=== PATIENT | female | born 1945 | race Hispanic/Latino ===

== ENCOUNTER 2021-06-30 12:28 | Inpatient (IN) | payer MEDICARE ==
[2021-06-30] MEDS ORDERED: ONDANSETRON 4MG INJ ONE (12:40)
[2021-06-30 12:54] LABS: BASOPHILS % (AUTO) 0.4 % (0.0-5.0); EOSINOPHILS % (AUTO) 0.3 % (0.0-8.0); HEMATOCRIT 41.3 % (36-48); MEAN CORPUSCULAR HEMOGLOBIN 30.1 pg (27.0-33.0); MEAN CORPUSCULAR VOLUME 94.3 fL (79-99); MONOCYTES % (AUTO) 7.5 % (3.0-13.0); NEUTROPHILS % (AUTO) 73.9 % (40.0-77.0); PLATELET COUNT (AUTO) 213 K/uL (130-400); RED BLOOD CELL COUNT(AUTO) 4.38 MIL/uL (4.00-5.50); RED CELL DISTRIBUTION WIDTH 13.7 % (11.0-15.5); WHITE BLOOD COUNT (AUTO) 9.1 K/uL (4.8-10.8)
[2021-06-30] MEDS ORDERED: PROMETHAZINE HCL 25 MG/ML 1ML AMPULE IM ONE (13:00)
[2021-06-30] MEDS ORDERED: 0.9%NACL 1000ML 1,572 ML IV ONE (13:00)
[2021-06-30] MEDS ORDERED: ONDANSETRON 4MG INJ IVP ONE (13:00)
[2021-06-30 13:04] LABS: CREATININE 1.3 mg/dL (0.5-1.5); POTASSIUM 4.4 mmol/L (3.5-5.1)
[2021-06-30 13:08] LABS: ALBUMIN 2.5 g/dL (3.5-5.0); BILIRUBIN,TOTAL 0.4 mg/dL (0.2-1.0); CRP QUANTITATIVE 89.2 mg/L (0.00-9.0); MAGNESIUM 1.8 mg/dL (1.80-2.40); TOTAL PROTEIN, SERUM 7.3 g/dL (6.0-8.3)
[2021-06-30] MEDS ORDERED: SIMV40TA59 PO (13:13)
[2021-06-30] MEDS ORDERED: MIRA25TA PO (13:13)
[2021-06-30] MEDS ORDERED: OMEP40CA21 PO (13:13)
[2021-06-30] MEDS ORDERED: CETI10TA57 PO (13:13)
[2021-06-30] MEDS ORDERED: FLUO40CA7 PO (13:13)
[2021-06-30] MEDS ORDERED: TRAZ-187 PO (13:13)
[2021-06-30 13:14] LABS: APPEARANCE,URINE Clear (CLEAR); BILIRUBIN,URINE Negative (NEGATIVE); COLOR,URINE Yellow (YELLOW); GLUCOSE, URINE (UA) 250 mg/dL (NEGATIVE); KETONES,URINE Negative (NEGATIVE); LEUKOCYTE ESTERASE ,URINE Moderate (NEGATIVE); NITRATE,URINE Positive (NEGATIVE); OCCULT BLOOD,URINE Negative (NEGATIVE); PH,URINE 5.5 (5.0-8.0); PROTEIN,URINE Negative (NEGATIVE)
[2021-06-30 13:43] LABS: RBC,URINE 0-1 /HPF (0-1)
[2021-06-30 13:44] LABS: BACTERIA,URINE Many /HPF (None Seen)
[2021-06-30 13:45] LABS: SQUAMOUS EPITHELIAL CELL,UR 0-2 /HPF (0-2)
[2021-06-30] MEDS ORDERED: INSULIN HUMULIN R 100 UNIT/ML 3ML IV ONE (14:00)
[2021-06-30] MEDS ORDERED: AZITHROMYCIN 250 MG TABLET PO ONE (14:30)
[2021-06-30] MEDS ORDERED: ONDANSETRON 4MG INJ IVP PRN (19:30)
[2021-06-30] MEDS ORDERED: CEFTRIAXONE 1G VIAL IVP SCH (19:30)
[2021-06-30] MEDS ORDERED: 0.9%NACL 10ML VIAL IV PRN (19:30)
[2021-06-30] MEDS ORDERED: NON-FORMULARY MEDICATION 1 EACH (Simvastatin (Zocor) 40 MG) PO SCH (21:00)
[2021-06-30] MEDS ORDERED: INSULIN HUMULIN R 100 UNIT/ML 3ML SQ SCH (21:00)
[2021-06-30] MEDS ORDERED: 0.9%NACL 50ML 50 ML IV ONE ×2 (21:30→21:40)
[2021-06-30] MEDS: TRAMADOL HCL 50 MG TABLET PO SCH (21:54)
[2021-06-30] MEDS: ZOSYN 3.375GM +NS 50ML IV SCH (21:54)
[2021-06-30] MEDS: SIMVASTATIN 20 MG TABLET PO SCH (21:54)
[2021-06-30] MEDS ORDERED: ACETAMINOPHEN 325 MG TAB ONE (23:05)
[2021-06-30] MEDS: IPRATROPIUM/ALBUTEROL SULFATE 3 ML SOLUTION IH SCH (23:41)
[2021-07-01] VITALS (34 sets, daily range): BP systolic 83–146; BP diastolic 36–109
[2021-07-01] MEDS ORDERED: DEXTROSE 50%-WATER 50 ML DISP.SYRIN IV PRN (00:30)
[2021-07-01] MEDS ORDERED: LIDOCAINE HCL-MPF 1% 2ML VIAL IV PRN (00:30)
[2021-07-01] MEDS ORDERED: POTASSIUM CHLORIDE 10% ELIXIR 20 MEQ/15 ML UDCUP PO PRN (00:30)
[2021-07-01] MEDS ORDERED: GLUCAGON 1MG KIT 1 MG ML IM PRN (00:30)
[2021-07-01] MEDS ORDERED: POTASSIUM CHLORIDE 20MEQ/100ML 100 ML IV PRN (00:30)
[2021-07-01] MEDS ORDERED: KCL 20 MEQ ERTAB PO PRN (00:30)
[2021-07-01] MEDS ORDERED: NOREPINEPHRIN 4MG/NS 250ML 250 ML IV ONE (00:47)
[2021-07-01] MEDS: 0.9%NACL 1000ML 1,000 ML IV SCH ×2 (00:56→09:50)
[2021-07-01] MEDS: TRAMADOL HCL 50 MG TABLET PO SCH ×3 (01:30→12:22)
[2021-07-01] MEDS ORDERED: 0.9%NACL 50ML 50 ML IV ONE (05:55)
[2021-07-01 05:58] LABS: BASOPHILS % (AUTO) 0.3 % (0.0-5.0); EOSINOPHILS % (AUTO) 0.1 % (0.0-8.0); HEMATOCRIT 38.5 % (36-48); LYMPHOCYTES % (AUTO) 13.5 % (21.0-51.0); MEAN CORPUSCULAR HEMOGLOBIN 29.6 pg (27.0-33.0); MEAN CORPUSCULAR HGB CONC 31.9 g/dL (32.0-36.0); MEAN CORPUSCULAR VOLUME 92.5 fL (79-99); MONOCYTES % (AUTO) 9.5 % (3.0-13.0); NEUTROPHILS % (AUTO) 75.8 % (40.0-77.0); PLATELET COUNT (AUTO) 200 K/uL (130-400); RED BLOOD CELL COUNT(AUTO) 4.16 MIL/uL (4.00-5.50); RED CELL DISTRIBUTION WIDTH 13.8 % (11.0-15.5); WHITE BLOOD COUNT (AUTO) 12.3 K/uL (4.8-10.8)
[2021-07-01] MEDS: ZOSYN 3.375GM +NS 50ML IV SCH ×3 (06:00→18:15)
[2021-07-01] MEDS: IPRATROPIUM/ALBUTEROL SULFATE 3 ML SOLUTION IH SCH ×4 (06:13→23:19)
[2021-07-01 06:20] LABS: MAGNESIUM 1.9 mg/dL (1.80-2.40); POTASSIUM 4.4 mmol/L (3.5-5.1); THYROID STIMULATING HORMONE 2.06 uIU/mL (0.36-3.74)
[2021-07-01 06:27] LABS: ABG BASE EXCESS -4.6 mmol/L (-2.0-3.0); ABG HCO3 20.7 mmol/L (21.0-28.0); ABG OXYGEN SATURATION 96.2 % (95.0-99.0); ABG PCO2 39 mmHg (32-45)
[2021-07-01 06:27] LABS: CREATININE 1.4 mg/dL (0.5-1.5)
[2021-07-01] MEDS ORDERED: NON-FORMULARY MEDICATION 1 EACH (Omeprazole 40 MG) PO SCH (07:30)
[2021-07-01] MEDS: INSULIN HUMULIN R 100 UNIT/ML 3ML SQ SCH ×4 (08:07→20:51)
[2021-07-01] MEDS ORDERED: NON-FORMULARY MEDICATION 1 EACH (Cetirizine HCl 10 MG) PO SCH (09:00)
[2021-07-01] MEDS ORDERED: FLUOXETINE HCL 40 MG PO SCH (09:00)
[2021-07-01] MEDS ORDERED: TRAZODONE HCL 100 MG TABLET PO SCH (09:00)
[2021-07-01] MEDS: CETIRIZINE HCL 5 MG TABLET PO SCH (09:50)
[2021-07-01] MEDS: POLYETHYLENE GLYCOL 3350 17 GM POWD.PACK PO SCH (09:50)
[2021-07-01] MEDS: PANTOPRAZOLE 40 MG TAB DR PO SCH (09:50)
[2021-07-01] MEDS: ENOXAPARIN SODIUM 40 MG/0.4 ML SYRINGE SQ SCH (09:50)
[2021-07-01] MEDS: FLUOXETINE HCL 20 MG CAPSULE PO SCH (09:50)
[2021-07-01] MEDS ORDERED: SODIUM CHLORIDE 3% FOR INHALATION 4 ML/AMP VIAL.NEB IH ONE (09:55)
[2021-07-01] MEDS ORDERED: TRAMADOL HCL 50 MG TABLET PO PRN (15:00)
[2021-07-01] MEDS: SIMVASTATIN 20 MG TABLET PO SCH (20:50)
[2021-07-01] MEDS: TRAZODONE HCL 100 MG TABLET PO SCH (20:51)
[2021-07-01] MEDS: INSULIN GLARGINE 100 UNITS/ML 10 ML VIAL SQ SCH (20:52)
[2021-07-02] VITALS (19 sets, daily range): BP systolic 91–135; BP diastolic 43–90
[2021-07-02] MEDS: ZOSYN 3.375GM +NS 50ML IV SCH ×3 (03:32→19:48)
[2021-07-02 03:57] LABS: BASOPHILS % (AUTO) 0.3 % (0.0-5.0); HEMATOCRIT 35.5 % (36-48); LYMPHOCYTES % (AUTO) 17.4 % (21.0-51.0); MEAN CORPUSCULAR HEMOGLOBIN 30.6 pg (27.0-33.0); MEAN CORPUSCULAR HGB CONC 32.1 g/dL (32.0-36.0); MEAN CORPUSCULAR VOLUME 95.2 fL (79-99); NEUTROPHILS % (AUTO) 70.8 % (40.0-77.0); PLATELET COUNT (AUTO) 190 K/uL (130-400); RED BLOOD CELL COUNT(AUTO) 3.73 MIL/uL (4.00-5.50); RED CELL DISTRIBUTION WIDTH 13.9 % (11.0-15.5); WHITE BLOOD COUNT (AUTO) 9.4 K/uL (4.8-10.8)
[2021-07-02 04:11] LABS: ALBUMIN 1.9 g/dL (3.5-5.0); BILIRUBIN,TOTAL 0.5 mg/dL (0.2-1.0); CREATININE 1.2 mg/dL (0.5-1.5); POTASSIUM 4.3 mmol/L (3.5-5.1); TOTAL PROTEIN, SERUM 6.6 g/dL (6.0-8.3)
[2021-07-02 04:15] LABS: HEMOGLOBIN A1C 8.1 % (4.0-6.0)
[2021-07-02] MEDS: INSULIN HUMULIN R 100 UNIT/ML 3ML SQ SCH ×4 (06:06→20:14)
[2021-07-02] MEDS: INSULIN GLARGINE 100 UNITS/ML 10 ML VIAL SQ SCH ×2 (06:24→20:13)
[2021-07-02] MEDS: IPRATROPIUM/ALBUTEROL SULFATE 3 ML SOLUTION IH SCH ×4 (06:31→23:43)
[2021-07-02] MEDS: CETIRIZINE HCL 5 MG TABLET PO SCH (07:55)
[2021-07-02] MEDS: FLUOXETINE HCL 20 MG CAPSULE PO SCH (07:56)
[2021-07-02] MEDS: PANTOPRAZOLE 40 MG TAB DR PO SCH (07:56)
[2021-07-02] MEDS: POLYETHYLENE GLYCOL 3350 17 GM POWD.PACK PO SCH (07:56)
[2021-07-02] MEDS: ENOXAPARIN SODIUM 40 MG/0.4 ML SYRINGE SQ SCH (07:56)
[2021-07-02] MEDS: SIMVASTATIN 20 MG TABLET PO SCH (20:11)
[2021-07-02] MEDS: TRAZODONE HCL 100 MG TABLET PO SCH (20:12)
[2021-07-03] VITALS (7 sets, daily range): BP systolic 97–132; BP diastolic 39–73
[2021-07-03] MEDS ORDERED: 0.9%NACL 50ML 50 ML IV ONE (03:43)
[2021-07-03] MEDS: ZOSYN 3.375GM +NS 50ML IV SCH ×3 (03:48→20:58)
[2021-07-03] MEDS: IPRATROPIUM/ALBUTEROL SULFATE 3 ML SOLUTION IH SCH ×4 (07:02→23:40)
[2021-07-03] MEDS: POLYETHYLENE GLYCOL 3350 17 GM POWD.PACK PO SCH (07:44)
[2021-07-03] MEDS: FLUOXETINE HCL 20 MG CAPSULE PO SCH (08:04)
[2021-07-03] MEDS: CETIRIZINE HCL 5 MG TABLET PO SCH (08:04)
[2021-07-03] MEDS: ENOXAPARIN SODIUM 40 MG/0.4 ML SYRINGE SQ SCH (08:04)
[2021-07-03] MEDS: PANTOPRAZOLE 40 MG TAB DR PO SCH (08:04)
[2021-07-03] MEDS: INSULIN GLARGINE 100 UNITS/ML 10 ML VIAL SQ SCH ×2 (08:05→21:04)
[2021-07-03] MEDS: INSULIN HUMULIN R 100 UNIT/ML 3ML SQ SCH ×4 (08:07→21:05)
[2021-07-03 12:19] LABS: PROTHROMBIN TIME 10.9 SEC (9.6-11.6)
[2021-07-03] MEDS: SIMVASTATIN 20 MG TABLET PO SCH (20:58)
[2021-07-03] MEDS: TRAZODONE HCL 100 MG TABLET PO SCH (20:58)
[2021-07-04 03:08] VITALS: BP 140/49
[2021-07-04] MEDS ORDERED: 0.9%NACL 50ML 50 ML IV ONE (03:11)
[2021-07-04] MEDS: ZOSYN 3.375GM +NS 50ML IV SCH ×2 (03:15→11:57)
[2021-07-04] MEDS ORDERED: SODIUM CHLORIDE 3% FOR INHALATION 4 ML/AMP VIAL.NEB IH ONE (06:29)
[2021-07-04 07:00] VITALS: BP_SYST 118; BP_SYST 136; BP_DIAS 47; BP_DIAS 64
[2021-07-04] MEDS: IPRATROPIUM/ALBUTEROL SULFATE 3 ML SOLUTION IH SCH ×2 (07:10→11:40)
[2021-07-04] MEDS: INSULIN HUMULIN R 100 UNIT/ML 3ML SQ SCH ×2 (07:30→12:25)
[2021-07-04] MEDS: INSULIN GLARGINE 100 UNITS/ML 10 ML VIAL SQ SCH (08:40)
[2021-07-04] MEDS: ENOXAPARIN SODIUM 40 MG/0.4 ML SYRINGE SQ SCH (08:49)
[2021-07-04] MEDS: PANTOPRAZOLE 40 MG TAB DR PO SCH (08:49)
[2021-07-04] MEDS: CETIRIZINE HCL 5 MG TABLET PO SCH (08:50)
[2021-07-04] MEDS: FLUOXETINE HCL 20 MG CAPSULE PO SCH (08:50)
[2021-07-04] MEDS: POLYETHYLENE GLYCOL 3350 17 GM POWD.PACK PO SCH (09:00)
[2021-07-04 11:00] VITALS: BP 118/47
[2021-07-04 19:00] VITALS: BP 160/74
[2021-07-04 19:15] VITALS: BP 170/65
== END 2021-07-04 13:48 | DRG 871 ==
LOC: EDH 12:28 → EDHIP 14:36 → UNDOADMOB 14:36 → OBSVTOIN 19:11 → EDHIP 19:11 → 3AH 07-01 00:24 → EDHIP 07-01 02:10 → 2BH 07-01 09:14 → 2DH 07-02 14:47
PROVIDERS: ADMIT Internal Medicine Critical Care Medicine; ATTEND Internal Medicine Critical Care Medicine
PROC: 02HV33Z Insertion of Infusion Device into Superior Vena Cava, Percutaneous Approach (ICD-10-PCS; principal; 2021-07-03)
DX: A41.51 Sepsis due to Escherichia coli [E. coli] (principal); J18.9 Pneumonia, unspecified organism; R65.21 Severe sepsis with septic shock; N30.00 Acute cystitis without hematuria; Z16.12 Extended spectrum beta lactamase (ESBL) resistance; E66.01 Morbid (severe) obesity due to excess calories; F03.90 Unspecified dementia, unspecified severity, without behavioral disturbance, psychotic disturbance, mood disturbance, and anxiety; Z66 Do not resuscitate; Z20.822 Contact with and (suspected) exposure to COVID-19; E78.00 Pure hypercholesterolemia, unspecified; I10 Essential (primary) hypertension; E78.5 Hyperlipidemia, unspecified; F17.200 Nicotine dependence, unspecified, uncomplicated; G47.33 Obstructive sleep apnea (adult) (pediatric); K21.9 Gastro-esophageal reflux disease without esophagitis; F32.A Depression, unspecified; E11.36 Type 2 diabetes mellitus with diabetic cataract; H26.9 Unspecified cataract; Z74.01 Bed confinement status; Z79.899 Other long term (current) drug therapy; Z87.440 Personal history of urinary (tract) infections
CPT/HCPCS: 36415; 36600; 71045; 76770; 80048; 80053; 80061; 81001; 82550; 82803; 82948; 83036; 83605; 83735; 83874; 84100; 84145; 84443; 84484; 85025; 85610; 86140; 87040; 87077; 87088; 87186; 87635; 87804; 93005; 94640; 94664; 94667; 94668; 97039; C1894; G0378; J0696; J1650; J1815; J2405; J2543; J2550; J3490; J7030